=== PATIENT | female | born 1960 | race Caucasian/White ===

== ENCOUNTER 2018-02-09 16:40 | Emergency (ER) | payer MEDICARE, MEDICAID ==
[~2018-02-09] VITALS: Ht 177.8 cm; Wt 72.0 kg
[~2018-02-09 16:40] MED LIST: FENT100D TD; LEVO.15 PO; LORT5TAB PO
[2018-02-09 16:50] VITALS: BP 131/71; PULSE 77; RESP 20; TEMP 98.5; O2SAT 97
[2018-02-09] MEDS ORDERED: SODIUM CHLORIDE 0.9% FLUSH 10 ML FLUSH IV FLUSH PRN (17:15)
[2018-02-09] MEDS ORDERED: DIATRIZOATE MEGLUM/DIATRIZOATE SOD 9 ML CUP ONE (17:38)
--- NOTE | 2018-02-09 17:54 | PD ---
HPI Chief Complaint: Abdominal Pain Time Seen by Provider: 17:03 Travel History International Travel<30 days: No Contact w/Intl Traveler<30days: No Traveled to known affect area: No History of Present Illness HPI Patient is a 57-year-old female presenting to emergency department for evaluation of abdominal pain. She states that she ate a hamburger today prior to coming to emergency department which is what exacerbated her pain. Patient states his been ongoing for several months, the pain is worse after she eats. She reports is cramping and diffuse. She reports feeling bloated. Patient is followed by [facility], she states her GI doctor was concerned for a volvulus. Patient reports occasional nausea but no vomiting. She reports normal bowel movements, she denies any dark or tarry like stools. Patient reports that her pain was initially 8 out of 10 however she took 3 Bentyl tablets and her pain is currently a 4 out of 10. Symptoms are chronic in nature, exacerbated by food , relieved with Bentyl somewhat. Patient presented today because pain was worse , she has an appointment with Dr. Melgar tomorrow. She has a history of Crohn' s disease and COPD. She has had a hysterectomy, appendectomy, cholecystectomy. Her last EGD and colonoscopy was 3 months ago. She denies any abnormalities on those exams. PFSH Past Medical History Arthritis: Yes (R.A.) COPD: Yes Gastrointestinal Disorders: Yes (CROHNS DISEASE) Thyroid Disease: Yes ?: Not Tubal Ligation: Yes Past Surgical History Appendectomy: Yes Cholecystectomy: Yes Gynecologic Surgery: Yes (TUBAL LIGATION) Hysterectomy: Yes Neurologic Surgery: Yes (NECK SURGERY) Social History Alcohol Use: No Tobacco Use: Yes Substance Use: No Allergies-Medications (Allergen,Severity, Reaction): Coded Allergies: penicillin G (Unverified Allergy, Severe, 02/09/18) prednisone (Unverified Allergy, Severe, 02/09/18) tramadol (Unverified Allergy, Severe, 02/09/18) Reported Meds & Prescriptions Reported Meds & Active Scripts Active Reported Hyoscyamine (Hyoscyamine Sulfate) 0.125 Mg Tab 0.125 Mg PO Q4H Bentyl (Dicyclomine HCl) 10 Mg Cap 10 Mg PO TID PRN [place] (Hydrocodone-Acetaminophen) 5 Mg-325 Mg Tab 1 Tab PO Q4H PRN Review of Systems Except as stated in HPI: all other systems reviewed are Neg General / Constitutional: No: Fever, Chills HENT: No: Headaches Cardiovascular: No: Chest Pain or Discomfort Respiratory: No: Shortness of Breath Gastrointestinal: Positive: Nausea, Abdominal Pain, No: Vomiting, Changes in Bowel Habits, Indigestion, Loss of Appetite Musculoskeletal: No: Myalgias Physical Exam Narrative GENERAL: Well-developed, well-nourished, alert female. Presenting in no acute distress. SKIN: Warm and dry. HEAD: Atraumatic. Normocephalic. EYES: Pupils equal and round. No scleral icterus. No injection or drainage. ENT: No nasal bleeding or discharge. Mucous membranes pink and moist. NECK: Trachea midline. No JVD. CARDIOVASCULAR: Regular rate and rhythm. RESPIRATORY: No accessory muscle use. Clear to auscultation. Breath sounds equal bilaterally. GASTROINTESTINAL: Abdomen soft, mildly tender diffusely, nondistended. Hepatic and splenic margins not palpable. Positive bowel sounds, no rebound, no guarding. MUSCULOSKELETAL: Extremities without clubbing, cyanosis, or edema. No obvious deformities. NEUROLOGICAL: Awake and alert. No obvious cranial nerve deficits. Motor grossly within normal limits. Five out of 5 muscle strength in the arms and legs. Normal speech. PSYCHIATRIC: Appropriate mood and affect; insight and judgment normal. Data Data Last Documented VS Vital Signs Date Time Temp Pulse Resp B/P (MAP) Pulse Ox O2 Delivery O2 Flow Rate FiO2 02/09/18 18:14 67 19 125/81 (96) 95 Room Air 02/09/18 16:50 98.5 Orders Orders Complete Blood Count With Diff (02/09/18 17:15) Comprehensive Metabolic Panel (02/09/18 17:15) Lipase (02/09/18 17:15) Prothrombin Time / Inr (Pt) (02/09/18 17:15) Act Partial Throm Time (Ptt) (02/09/18 17:15) Ct Abd/Pel W Iv Contrast(Rout) (02/09/18 17:15) Iv Access Insert/Monitor (02/09/18 17:15) Ecg Monitoring (02/09/18 17:15) Oximetry (02/09/18 17:15) NPO (02/09/18 17:15) Sodium Chloride 0.9% Flush (Ns Flush) (02/09/18 17:15) Oral Contrast - Adult (02/09/18 17:26) Diatrizoate Dayana (Md Kaylene Anne) (02/09/18 17:38) Iohexol 350 Inj (Omnipaque 350 Inj) (02/09/18 19:44) Labs Laboratory Tests Test 02/09/18 18:04 White Blood Count 5.4 TH/MM3 Red Blood Count 4.20 MIL/MM3 Hemoglobin 13.1 GM/DL Hematocrit 38.7 % Mean Corpuscular Volume 92.1 FL Mean Corpuscular Hemoglobin 31.3 PG Mean Corpuscular Hemoglobin Concent 33.9 % Red Cell Distribution Width 13.9 % Platelet Count 222 TH/MM3 Mean Platelet Volume 7.9 FL Neutrophils (%) (Auto) 51.1 % Lymphocytes (%) (Auto) 38.5 % Monocytes (%) (Auto) 7.9 % Eosinophils (%) (Auto) 1.5 % Basophils (%) (Auto) 1.0 % Neutrophils # (Auto) 2.8 TH/MM3 Lymphocytes # (Auto) 2.1 TH/MM3 Monocytes # (Auto) 0.4 TH/MM3 Eosinophils # (Auto) 0.1 TH/MM3 Basophils # (Auto) 0.1 TH/MM3 CBC Comment DIFF FINAL Differential Comment Prothrombin Time 10.2 SEC Prothromb Time International Ratio 1.0 RATIO Activated Partial Thromboplast Time 25.2 SEC Blood Urea Nitrogen 16 MG/DL Creatinine 0.77 MG/DL Random Glucose 59 MG/DL Total Protein 6.8 GM/DL Albumin 3.5 GM/DL Calcium Level 8.6 MG/DL Alkaline Phosphatase 77 U/L Aspartate Amino Transf (AST/SGOT) 20 U/L Alanine Aminotransferase (ALT/SGPT) 27 U/L Total Bilirubin 0.2 MG/DL Sodium Level 144 MEQ/L Potassium Level 3.6 MEQ/L Chloride Level 109 MEQ/L Carbon Dioxide Level 29.1 MEQ/L Anion Gap 6 MEQ/L Estimat Glomerular Filtration Rate 78 ML/MIN Lipase 169 U/L [facility] Medical Decision Making Medical Screen Exam Complete: Yes Emergency Medical Condition: Yes Interpretation(s) Vital Signs Date Time Temp Pulse Resp B/P (MAP) Pulse Ox O2 Delivery O2 Flow Rate FiO2 02/09/18 16:50 98.5 77 20 131/71 (91) 97 Differential Diagnosis Volvulus versus IBS versus Crohn's versus metabolic abnormality versus other Narrative Course Patient is a well-appearing 57-year-old female presenting to the emergency room for evaluation of abdominal pain. Pain is chronic in nature, is exacerbated with food. Pain was improved after administration of Bentyl prior to coming to the emergency department. Patient's vital signs are stable, labs and imaging ordered and pending. CT scan the abdomen and pelvis shows no acute abnormality. CBC with no acute findings, chemistry is unremarkable, lipase is normal. Patient has been resting comfortably in the emergency department. Patient has an appointment with Dr. Melgar tomorrow. Patient will be discharged home, she is advised to keep her appointment with Dr. Melgar. She was reassured at this time that there were no acute findings. She was given strict return precautions. Patient verbalized understanding of instructions. Patient stable for discharge. Diagnosis Primary Impression: Abdominal pain Qualified Codes: R10.84 - Generalized abdominal pain Referrals: Bret Melgar MD As scheduled Primary Care Physician Patient Instructions: Abdominal Pain (ED), General Instructions Additional Instructions: Follow-up with Dr. Melgar tomorrow as scheduled Follow-up with your primary doctor Maintain a bland, easy to digest diet, increasing as tolerated Return to emergency department for any new or worsening symptoms Med/Other Pt SpecificInfo: No Change to Meds Disposition: 01 DISCHARGE HOME Condition: Stable Renetta Hubbard Feb 09, 2018 17:54
[2018-02-09] MEDS ORDERED: HYOS1TAB9 PO (18:04)
[2018-02-09] MEDS ORDERED: DICY10 PO (18:04)
[2018-02-09] MEDS ORDERED: NORC5TAB PO (18:04)
[2018-02-09 18:14] VITALS: BP 125/81; PULSE 67; RESP 19; O2SAT 95
[2018-02-09 18:48] LABS: AUTOMATED NEUTROPHIL # 2.8 TH/MM3 (1.8-7.7); BASOPHIL # 0.1 TH/MM3 (0-0.2); EOSINOPHIL # 0.1 TH/MM3 (0-0.4); EOSINOPHIL % 1.5 % (0.0-4.0); HEMATOCRIT 38.7 % (35.0-46.0); HEMOGLOBIN 13.1 GM/DL (11.6-15.3); LYMPH % 38.5 % (9.0-44.0); LYMPHOCYTE # 2.1 TH/MM3 (1.0-4.8); MEAN CELL VOLUME 92.1 FL (80.0-100.0); MEAN CORPUSCULAR HEMOGLOBIN 31.3 PG (27.0-34.0); MEAN CORPUSCULAR HGB CONC 33.9 % (32.0-36.0); MEAN PLATELET VOLUME 7.9 FL (7.0-11.0); MONO % 7.9 % (0.0-8.0); MONOCYTE # 0.4 TH/MM3 (0-0.9); NEUT % 51.1 % (16.0-70.0); PLATELET COUNT 222 TH/MM3 (150-450); RED CELL DISTRIBUTION WIDTH 13.9 % (11.6-17.2); WHITE BLOOD COUNT 5.4 TH/MM3 (4.0-11.0)
[2018-02-09 18:58] LABS: PROTHROMBIN TIME - PATIENT 10.2 SEC (9.8-11.6)
[2018-02-09 19:04] LABS: ALBUMIN 3.5 GM/DL (3.4-5.0); AST (GOT) 20 U/L (15-37); BICARBONATE 29.1 MEQ/L (21.0-32.0); BLOOD UREA NITROGEN 16 MG/DL (7-18); CALCIUM 8.6 MG/DL (8.5-10.1); CHLORIDE 109 MEQ/L (98-107); CREATININE 0.77 MG/DL (0.50-1.00); GLOMERULAR FILTRATION RATE 78 ML/MIN (>89); GLUCOSE,RANDOM 59 MG/DL (74-106); SODIUM (NA) 144 MEQ/L (136-145)
[2018-02-09 19:05] LABS: ALT (GPT) 27 U/L (10-53)
[2018-02-09 19:07] LABS: ALKALINE PHOSPHATASE 77 U/L (45-117); TOTAL BILIRUBIN ADULT 0.2 MG/DL (0.2-1.0); TOTAL PROTEIN 6.8 GM/DL (6.4-8.2)
[2018-02-09] MEDS ORDERED: IOHEXOL 350 MG/ML 10 ML VIAL (for RAD DIAG) IVCONTRAST ONE (19:44)
--- NOTE | 2018-02-09 20:06 | RADRPT ---
EXAM DATE/TIME: 02/09/2018 19:40 [facility] COMPARISON: No previous studies available for comparison. INDICATIONS : Intermittent abdominal pain X six months; possible volvulus. IV CONTRAST: 97 cc Omnipaque 350 (iohexol) IV ORAL CONTRAST: Prescribed oral contrast ingested. RADIATION DOSE: 6.36 CTDIvol (mGy) MEDICAL HISTORY : Crohn's disease. SURGICAL HISTORY : Tubal ligation. Hysterectomy. ENCOUNTER: Initial ACUITY: 4 - 6 months PAIN SCALE: 5/10 LOCATION: abdomen TECHNIQUE: Volumetric scanning of the abdomen and pelvis was performed. Using automated exposure control and ad justment of the mA and/or kV according to patient size, radiation dose was kept as low as reasonably achievable to obtain optimal diagnostic quality images. DICOM format image data is available electro nically for review and comparison. FINDINGS: LOWER CHEST: There is increased density identified at the posterior lung bases bilaterally likely related to atele ctasis or mild consolidation. There is also some linear density seen in the anterior inferior aspect of the left lower lobe. Breast implants are present. LIVER: Homogeneous density without lesion. The patient is status post cholecystectomy. There is mild dilata tion of the central intrahepatic and extra hepatic biliary ducts likely reflecting a reservoir phenom enon. The common bile duct measures 0.9 cm. SPLEEN: Normal size without lesion. PANCREAS: Within normal limits. KIDNEYS: Normal in size and shape. There is no mass, stone or hydronephrosis. ADRENAL GLANDS: Within normal limits. VASCULAR: There is no aortic aneurysm. BOWEL/MESENTERY: The stomach, small bowel, and colon demonstrate no acute abnormality. There is no free intraperitone al air or fluid. ABDOMINAL WALL: Within normal limits. RETROPERITONEUM: There is no lymphadenopathy. BLADDER: No wall thickening or mass. REPRODUCTIVE: The patient is status post hysterectomy. INGUINAL: There is no lymphadenopathy or hernia. MUSCULOSKELETAL: There are old fractures are seen at the superior anterior left pubic rami. There is mild degenerative change of the lumbar spine. CONCLUSION: 1. No acute abnormality seen. 2. No duct dilatation likely reflecting a reservoir phenomenon following cholecystectomy. 3. Bibasilar areas of consolidation or atelectasis. Allan Yeung MD on February 09, 2018 at 19:58 Board Certified Radiologist. This report was verified electronically.
== END 2018-02-09 20:53 | disposition home or self-care (01) ==
LOC: NEPC 16:40
DX: R10.84 Generalized abdominal pain (principal); R11.0 Nausea; M06.9 Rheumatoid arthritis, unspecified; J44.9 Chronic obstructive pulmonary disease, unspecified; Z87.19 Personal history of other diseases of the digestive system; E07.9 Disorder of thyroid, unspecified; Z72.0 Tobacco use; Z88.0 Allergy status to penicillin; Z88.8 Allergy status to other drugs, medicaments and biological substances
CPT/HCPCS: 74177; 80053; 83690; 85025; 85610; 85730; 99285; Q9963; Q9967